=== PATIENT | female | born 1970 | race Two or more races ===

== ENCOUNTER 2022-01-05 13:09 | Emergency (ER) | payer OTHER ==
[~2022-01-05] VITALS: Ht 157.5 cm; Wt 72.9 kg
[2022-01-05 14:38] VITALS: BP 118/69
[2022-01-05] MEDS ORDERED: ACETAMINOPHEN/CODEINE#3 (300/30mg) TAB PO ONE (15:30)
[2022-01-05] MEDS ORDERED: ONDANSETRON ODT 4 MG TAB PO ONE (15:30)
[2022-01-05] MEDS ORDERED: cefTRIAXone SOD 1,000 MG VL IM ONE (15:30)
[2022-01-05] MEDS ORDERED: EPINEPHrine HCL 1 MG/1 ML AMP SC ONE (15:30)
[2022-01-05] MEDS ORDERED: IBUP800T27 PO (15:31)
[2022-01-05] MEDS ORDERED: CLIN300C8 PO (15:31)
[2022-01-05] MEDS ORDERED: BENZOCAINE (DENTAL) 20 % SPRAY 60ML MT ONE (15:45)
== END 2022-01-05 16:54 | disposition home or self-care (01) ==
LOC: ER 13:09
DX: K04.7 Periapical abscess without sinus (principal); J45.909 Unspecified asthma, uncomplicated; E11.9 Type 2 diabetes mellitus without complications; E78.5 Hyperlipidemia, unspecified; Z88.0 Allergy status to penicillin; Z88.2 Allergy status to sulfonamides
CPT/HCPCS: 96372; 99284; J0171; J0696; Q0162

== ENCOUNTER 2022-01-05 19:55 | Emergency (ER) | payer OTHER ==
[~2022-01-05] VITALS: Ht 157.5 cm; Wt 72.7 kg
[~2022-01-05 19:55] MED LIST: CLIN300C8 PO; IBUP800T27 PO
[2022-01-05 20:26] VITALS: BP 161/116
== END 2022-01-06 | disposition left against medical advice (07) ==
LOC: ER 19:58
DX: R22.0 Localized swelling, mass and lump, head (principal); Z53.21 Procedure and treatment not carried out due to patient leaving prior to being seen by health care provider